=== PATIENT | male | born 1960 | race Caucasian/White ===

== ENCOUNTER 2017-03-22 09:04 | Emergency (ER) | payer OTHER ==
[~2017-03-22] VITALS: Ht 167.6 cm; Wt 77.8 kg
[~2017-03-22 09:04] MED LIST: HYDR-2997 PO; [UNRECOGNIZED DRUG - REMARK]
[2017-03-22 09:06] VITALS: BP 163/95
--- OUTSIDE RECORDS SUMMARY | 2017-03-22 09:11 | XMS REPORT | Summary of Care ---
Author Author Daniel Randhawa M.D. Organization Unknown Address Unknown Phone Unavailable Care Team Providers Care Trial Court Judge Name Role Phone Daniel Randhawa M.D. 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 Refills: 0 Daniel Randhawa M.D. Start 11-Mar-2016 Active Hydrocodone-Acetaminophen 10-325 MG Oral Tablet take 2 po QID Quantity: 240 Refills: 0 Daniel Randhawa M.D. Start 11-Mar-2016 Active ALPRAZolam 0.25 MG Oral Tablet take 1 po daily prn Quantity: 60 Refills: 2 Daniel Randhawa M.D. Start 11-Mar-2016 Active ProAir HFA 108 (90 Base) MCG/ACT Inhalation Aerosol Solution INHALE 1 OR 2 PUFFS EVERY 4 TO 6 HOURS NEEDED Quantity: 8.5 Refills: 0 Daniel Randhawa M.D. Start 04-Aug-2016 Active Atorvastatin Calcium 80 MG Oral Tablet TAKE 80 MG Other Take two times a week. Quantity: 30 Refills: 3 Daniel Randhawa M.D. Start 04-Aug-2016 Active Amitriptyline HCl - 75 MG Oral Tablet TAKE 1 TABLET AT BEDTIME. Quantity: 90 Refills: 1 Daniel Randhawa M.D. Start 11-Mar-2016 Active Allergies and Adverse Reactions Name Dates Details No Known Drug Allergies (Allergy) Status: Active Past Medical History Name Dates Details History of Fractures (829.0, T14.8) Status: Resolved History of psychosis (V11.8, Z86.59) Status: Resolved Procedures Procedure Dates Details Procedures not documented Immunization Name Dates Details Immunizations not documented Family History Name Dates Details Family history of type 1 diabetes mellitus (V18.0, Z83.3) Status: Active Name Dates Details No pertinent family history Status: Active Social History Name Dates Details Unknown if ever smoked Vital Signs Date Test Result Details 02-Oct-2016 09:26 BP Systolic 160 mm[Hg] Status: Comments: Location: ; Position: BP Diastolic 100 mm[Hg] Status: Comments: Location: ; Position: Temperature 97.5 f Status: Comments: Method: Heart Rate 105 /min Status: Comments: Location: ; Weight 172 lb Status: Physical Findings 99 Status: Comments: O2 Saturation Results Date Description Value Details Results not documented Plan of Care Name Dates Details Planned Observations Planned Goals not documented Planned Encounters Appointment; Provider: Daniel Randhawa M.D. On 02-Dec-2016 13:00 Instructions Name Dates Details Instructions not documented Encounters Appointment; Daniel Randhawa M.D. Encounter Diagnosis: Problem not documented On 04-Aug-2016 09:30 Appointment; Daniel Randhawa M.D. Encounter Diagnosis: Problem not documented On 09:00 Appointment; Daniel Randhawa M.D. Encounter Diagnosis: Problem not documented On 09-Apr-2016 16:00 Appointment; Daniel Randhawa M.D. Encounter Diagnosis: Problem not documented On 12-Mar-2016 15:30
[2017-03-22] MEDS ORDERED: NAPROXEN 250 MG (NAPROSYN) TABLET PO ONE (09:20)
[2017-03-22] MEDS ORDERED: HYDR-3708 PO (09:20)
[2017-03-22] MEDS ORDERED: LSNP10T PO (09:20)
[2017-03-22 09:42] LABS: BASOPHILS % (AUTO) 1 % (0-2); EOSINOPHILS # (AUTO) 0.7 10^3uL; EOSINOPHILS % (AUTO) 5 % (0-4); LYMPHOCYTES # (AUTO) 2.8 X10^3; MEAN CORPUSCULAR HEMOGLOBIN 31.7 PG (26.0-34.0); MEAN CORPUSCULAR VOLUME 91 FL (80-100); MEAN PLATELET VOLUME 9.5 FL (6.0-9.5); MONOCYTES # (AUTO) 1.3 X10^3; MONOCYTES % (AUTO) 9 % (3-11); NEUTROPHILS # (AUTO) 9.6 X10^3; NEUTROPHILS % (AUTO) 65 % (51-67); PLATELET COUNT 437 10^3uL (150-450); WHITE BLOOD COUNT 14.64 10^3uL (4.0-11.0)
--- NOTE | 2017-03-22 10:13 | NUR ---
DR Mau ROJO CALLED BY DR PALOMINO RE PT CL
--- NOTE | 2017-03-22 10:16 | Diagnostic Imaging Report ---
INDICATION: Left wrist pain and swelling. TECHNIQUE: AP, oblique, and lateral views of the left wrist were obtained. FINDINGS: No fracture or acute bony abnormality is seen. The joint spaces are unremarkable. There is an ulnar minus variant. IMPRESSION: No acute bony abnormality of the left wrist. An ulnar minus variant is noted. Dictated by: Dictated on workstation # [id number]
[2017-03-22] MEDS ORDERED: NAPR500T3 PO (10:32)
--- NOTE | 2017-03-22 10:49 | NUR ---
Patient left under his own power. Orders were received for a splint to the left wrist and a RX was providedfor Naproxyn 200 mg PO.
== END 2017-03-22 12:12 | disposition home or self-care (01) ==
LOC: EDUNIT# 09:04 → ED 09:07
DX: M25.532 Pain in left wrist (principal)
CPT/HCPCS: 29125; 36415; 73110; 85025; 86140; 99283